=== PATIENT | male | born 1985 | race Caucasian/White ===

== ENCOUNTER 2017-08-06 19:58 | Emergency (ER) | payer SELFPAY ==
[2017-08-06] MEDS ORDERED: OXYCODONE-ACETAMINOPHEN 5-325 MG TABLET PO ONE (21:03)
[2017-08-06] MEDS ORDERED: IBUPROFEN 800 MG TABLET PO ONE (21:38)
--- NOTE | 2017-08-06 21:46 | RADIOLOGY REPORT (SQ) ---
EXAM DESCRIPTION: HAND RIGHT 3 VIEWS COMPLETED DATE/TIME: 08/06/2017 9:28 pm REASON FOR STUDY: wrist injury, pain COMPARISON: None. EXAM PARAMETERS: NUMBER OF VIEWS: Three views. TECHNIQUE: AP, lateral and oblique radiographic images acquired of the right hand. LIMITATIONS: None. FINDINGS: MINERALIZATION: Normal. BONES: Posttraumatic changes of the 5th metacarpal resulting in foreshortening and mild angulation. No acute fracture or dislocation. No worrisome bone lesions. JOINTS: No effusions. SOFT TISSUES: No soft tissue swelling. No foreign body. OTHER: No other significant finding. IMPRESSION: No evidence of acute osseous injury. TECHNICAL DOCUMENTATION: JOB ID: [id number] [employer]- All Rights Reserved Reading location - IP/workstation name: [email or web address]
--- NOTE | 2017-08-06 21:48 | RADIOLOGY REPORT (SQ) ---
EXAM DESCRIPTION: WRIST RIGHT 3 VIEWS COMPLETED DATE/TIME: 08/06/2017 9:28 pm REASON FOR STUDY: wrist injury, pain COMPARISON: None. NUMBER OF VIEWS: Three views. TECHNIQUE: AP, lateral, and oblique radiographic images acquired of the right wrist. LIMITATIONS: None. FINDINGS: MINERALIZATION: Normal. BONES: A tiny fragment projecting dorsal to the carpals may represent an acute triquetral avulsion in jury. SOFT TISSUES: Mild soft tissue swelling overlies the dorsal wrist. OTHER: No other significant finding. IMPRESSION: Dorsal soft tissue swelling with osseous fragment at the level of the distal carpal row likely represents a triquetral avulsion injury. TECHNICAL DOCUMENTATION: JOB ID: [id number] [employer]- All Rights Reserved Reading location - IP/workstation name: [email or web address]
--- NOTE | 2017-08-06 22:07 | ER Document Report ---
ED Hand/Wrist Injury - General Chief Complaint: Wrist Injury Stated Complaint: WRIST INJURY Time Seen by Provider: 08/06/17 21:02 Mode of Arrival: Ambulatory Information source: Patient Notes: Patient is a 32-year-old male who presents to the ER today for right wrist pain and swelling [place] and [place], trying to catch himself with his right hand. He denies hitting his head or loss of consciousness, denies pain anywhere else. States he has been keeping ice on the wrist but that it is very swollen and painful. - Related Data Allergies/Adverse Reactions: No Known Allergies Allergy (Unverified 08/06/17 20:09) Past Medical History - General Information source: Patient - Social History Smoking Status: Never Smoker Family History: Reviewed & Not Pertinent Review of Systems - Review of Systems Constitutional: No symptoms reported EENT: No symptoms reported Cardiovascular: No symptoms reported Respiratory: No symptoms reported Gastrointestinal: No symptoms reported Genitourinary: No symptoms reported Male Genitourinary: No symptoms reported Musculoskeletal: See HPI Skin: No symptoms reported Hematologic/Lymphatic: No symptoms reported Neurological/Psychological: No symptoms reported Physical Exam - Vital signs Vitals: Temp Pulse Resp BP Pulse Ox 99.2 F 49 L 20 146/84 H 100 08/06/17 20:19 08/06/17 20:19 08/06/17 20:19 08/06/17 20:19 08/06/17 20:19 - Notes Notes: PHYSICAL EXAMINATION: GENERAL: Uncomfortable appearing, but in no acute distress. HEAD: Atraumatic, normocephalic. EYES: Pupils equal round and reactive to light, extraocular movements intact, sclera anicteric, conjunctiva are normal. NECK: Normal range of motion, supple without lymphadenopathy LUNGS: CTAB and equal. No wheezes rales or rhonchi. HEART: Regular rate and rhythm without murmurs EXTREMITIES: Normal range of motion but with pain on flexion and extension of the right wrist, tender to right dorsal hand, normal range of motion of all fingers, good capillary refill in all fingers,, no pitting edema. No cyanosis. NEUROLOGICAL: Cranial nerves grossly intact. Normal sensory/motor exams. PSYCH: Normal mood, normal affect. SKIN: Warm, Dry, normal turgor, edema to the right dorsal hand and wrist, see extremities above Course - Re-evaluation Re-evalutation: 08/07/17 01:21 X-ray of the right hand and wrist reveal a triquetral avulsion fracture. Patient will be placed in a dorsal volar splint and given orthopedic information to follow-up with. Patient was given something for pain. Patient is neurovascularly intact. - Vital Signs Vital signs: Temp Pulse Resp BP Pulse Ox 98.9 F 78 18 150/86 H 100 08/06/17 22:49 08/06/17 22:49 08/06/17 22:49 08/06/17 22:49 08/06/17 22:49 Procedures - Immobilization Right Wrist Time completed: 23:00 Pre-Proc Neuro Vasc Exam: Normal Immobilizer type: Volar splint Performed by: PCT Post-Proc Neuro Vasc Exam: Normal Alignment checked and good: Yes Discharge - Discharge Clinical Impression: Triquetral chip fracture Qualifiers: Encounter type: initial encounter Fracture type: closed Laterality: right Qualified Code(s): S62.111A - Displaced fracture of triquetrum [cuneiform] bone , right wrist, initial encounter for closed fracture Condition: Stable Disposition: HOME, SELF-CARE Instructions: Avulsion Fracture ([facility]) Additional Instructions: Return immediately for any new or worsening symptoms. Follow up with orthopedic doctor, call tomorrow to make followup appointment. Prescriptions: Oxycodone HCl/Acetaminophen [Percocet 5-325 mg Tablet] 1 - 2 tab PO Q4H PRN #15 tablet PRN Reason: Referrals: REYMUNDO JAIN DO [ACTIVE STAFF] - Follow up as needed
[2017-08-06] MEDS ORDERED: HYDROCODONE/ACETAMINOPHEN 5-325 MG (6 TAB/ER DISP) PO PRN (22:08)
[2017-08-06 22:50] VITALS: BP 150/86
== END 2017-08-06 22:50 | disposition home or self-care (01) ==
LOC: ER 19:58
DX: S62.111A Displaced fracture of triquetrum [cuneiform] bone, right wrist, initial encounter for closed fracture (principal); W18.30XA Fall on same level, unspecified, initial encounter; Y93.19 Activity, other involving water and watercraft; Y92.832 Beach as the place of occurrence of the external cause
CPT/HCPCS: 99283